=== PATIENT | male | born 1960 | race Caucasian/White ===

== ENCOUNTER 2016-07-19 12:03 | Emergency (ER) | payer SELFPAY ==
[2016-07-19 12:29] VITALS: TEMP 98.6; BMI 27.6
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
[2016-07-19] MEDS ORDERED: DIPHENHYDRAMINE 50 MG/ML VIAL IM ONE (13:36)
[2016-07-19] MEDS ORDERED: METOCLOPRAMIDE 10 MG/2 ML VIAL IM ONE (13:36)
[2016-07-19] MEDS ORDERED: KETOROLAC TROMETHAMINE 60 MG/2 ML SDV IM ONE (13:36)
--- NOTE | 2016-07-19 14:07 | DIRPT ---
CLINICAL DATA: Status post fall with occipital head and neck pain. EXAM: CT HEAD WITHOUT CONTRAST CT CERVICAL SPINE WITHOUT CONTRAST TECHNIQUE: Multidetector CT imaging of the head and cervical spine was performed following the standard protocol without intravenous contrast. Multiplanar CT image reconstructions of the cervical spine were also generated. COMPARISON: CT of the head 01/05/2016 FINDINGS: CT HEAD FINDINGS No mass effect or midline shift. No evidence of acute intracranial hemorrhage, or infarction. No abnormal extra-axial fluid collections. White-white matter differentiation is normal. Basal cisterns are preserved. No depressed skull fractures. Fluid level within the right maxillary and sphenoid sinuses with mild polypoid mucosal thickening, likely due to acute sinusitis. Visualized paranasal sinuses and mastoid air cells are otherwise not opacified. CT CERVICAL SPINE FINDINGS There is straightening of the cervical lordosis likely due to multilevel osteoarthritic changes. Worst affected levels are C4-C5 C5-C6 and C6-C7, with disc space narrowing, endplate sclerotic changes and osteophyte formation. Posterior osteophytes arthropathy is also present, worse at C2-C3, C3-C4 and C3-C4. There is no evidence for acute fracture or dislocation. Prevertebral soft tissues have a normal appearance. Lung apices have a normal appearance. IMPRESSION: No acute intracranial abnormality. Right maxillary and sphenoid sinus acute sinusitis. No evidence of traumatic injury to the cervical spine. Multilevel osteoarthritic changes with straightening of the cervical lordosis. Electronically Signed By: Armando Lezama M.D. On: 07/19/2016 14:05
[2016-07-19 14:27] VITALS: BP 148/76; PULSE 89
== END 2016-07-19 14:24 | disposition home or self-care (01) ==
LOC: EDMC 12:03
DX: J01.00 Acute maxillary sinusitis, unspecified (principal); S16.1XXA Strain of muscle, fascia and tendon at neck level, initial encounter; M47.812 Spondylosis without myelopathy or radiculopathy, cervical region; W01.10XA Fall on same level from slipping, tripping and stumbling with subsequent striking against unspecified object, initial encounter; Y93.9 Activity, unspecified
CPT/HCPCS: 70450; 72125; 96372; 99282; J1200; J1885; J2765

== ENCOUNTER 2016-08-05 10:22 | Emergency (ER) | payer SELFPAY ==
[2016-08-05 10:26] VITALS: TEMP 97.9; BMI 27.3
[2016-08-05] MEDS ORDERED: HYDROmorphone 1 MG INJECTION IM ONE ×2 (10:48→11:55)
[2016-08-05] MEDS ORDERED: DIAZEPAM 5 MG TAB PO ONE (10:48)
[2016-08-05] MEDS ORDERED: KETOROLAC TROMETH 30 MG/ML VIAL IM ONE (10:48)
--- NOTE | 2016-08-05 11:06 | EDPRACDOC ---
ED Hip Problem HPI - General Information Chief Complaint: Hip Pain Stated Complaint: LEFT HIP PAIN Time Seen by Provider: 08/05/16 10:44 Information Source: Patient Mode of Arrival: Car Home Medications: Home Medications ClonazePAM [Klonopin] 0.5 mg PO DAILY PRN 07/19/16 Sumatriptan Succinate [Imitrex] 25 mg PO DAILY PRN 07/19/16 Zolpidem Tartrate [Ambien] 5 - 10 mg PO QHS PRN 07/19/16 Diazepam [Valium] 5 mg PO BID #10 tablet 08/05/16 Ketorolac Tromethamine [Toradol] 10 mg PO Q6H PRN #20 tab 08/05/16 Oxycodone HCl [Roxicodone] 5 mg PO Q6H #15 tablet 08/05/16 Prednisone [Deltasone, Orasone] 1 tabs PO BID #18 tab 08/05/16 Allergies/Adverse Reactions: Allergies Allergy/AdvReac Type Severity Reaction Status Date / Time meperidine [From Demerol] Allergy See Verified 08/05/16 10:26 Comments - History of Present Illness Onset: SUN HPI: PT HAS A HX OF CHRONIC BILATERAL HIP PAIN. HE HAS HAD 3 HIP REPLACEMENTS ON THE RIGHT AND HAS BEEN HAVING MORE PAIN ON THE LEFT AND FEELS LIKE THAT HIP IS GOING TO NEED REPLACEMENT SOON. PT SAID HE SLIPPED AND FELL AND IS NOW HAVING INCREASING PAIN TO HIS LEFT HIP. PT IS ABLE TO AMBULATE, BUT IT REALLY HURTS. Hip Problem Location: Reports: Left, Groin Mechanism: Reports: Blunt Trauma Circumstances: Reports: Fall Relevant History: Reports: Hip operation Able to Bear Weight: Limited Pain Severity: Moderate Associated Signs & Symptoms: Reports: None ED Past Medical History - Patient Medical History Neurological History: Reports: Migraine Psychological History: Reports: Anxiety. Denies: Depression Systemic History: Denies: Cancer Additional Past Medical History: CHRONIC HIP PAIN Surgical History: Reports: Other (RIGHT HIP REPLACEMENTS) - Social Medical History Smoking Status: Never smoker ETOH: None Substance Abuse: None Lives In: Home EDM Review of Systems - Review of Systems ROS Negative Except as Marked: Yes All systems reviewed and were negative except as marked Musculoskeletal: Hip - Physical Exam Constitutional: Alert (Awake), No apparent distress Oriented to: Time, Person, Place Last recorded Vital Signs: Last Vital Signs Temp 97.9 F 08/05/16 10:22 Pulse 100 08/05/16 10:22 Resp 20 08/05/16 10:22 BP 166/97 08/05/16 10:22 Pulse Ox 96 08/05/16 10:22 Oxygen Pulse Oxygen Saturation 96 O2 Device Room Air Oxygen Flow Rate Fraction of Inspired Oxygen ( FIO2) - HEENT Head: Normal ( normocephalic) Eye Exam: Normal (PERRL, EOMI, Sclera white) Oropharynx: Normal (Pharynx:Moist without exudate,Gums-no swelling) ENT EAC: Normal TMJ: Normal Nose: No Symptoms Reported (septum midline) Neck: Normal (FROM, trachea at midline) - Respiratory/Cardiovascular Respiratory: Normal - CTA (BBS clear to auscultation without adventitious sounds ) Cardiovascular: Normal (RRR without murmur, gallop or rub) - GI Auscultation: Normal (NABS) Palpation: Normal (Soft,No rebound or guarding, non distended) Tenderness: Non tender Vance's Sign: Negative - Musculoskeletal Back: Normal (Non-Tender) Extremities: Normal (Normal tone, Pulses 2+ No cyanosis or edema, FROM) - Integumentary Skin: Normal, Warm, Dry Lymphatics: Normal (no adenopathy) - Neurologic Memory Impaired: Normal Motor Function: Normal (Normal tone, Pulses 2+ No cyanosis or edema, FROM) Cranial Nerve: Normal (CN II-X11 intact sensation, strength 5/5) Cerebellar: Normal Mood Description: Normal Perception: Normal ED Hip Problem Physical Exam - Musculoskeletal Hip: Limited ROM, Moderate tenderness Hip Deformity: Normal Pelvis: Tender Thigh: Normal Back: Normal Distal Function/Circulation: Normal - Diagnostic Imaging Hip Image interpreted by: Radiologist Moderate osteoarthritic change left hip joint, progressed slightly since prior study. Total hip prosthesis on the right. No acute fracture or dislocation. Decision Time to Discharge: 12:15 - Departure Yes I personally saw and evaluated the patient. Disposition: Home Condition: Fair Final Diagnosis: ACUTE ON CHRONIC LEFT HIP PAIN Instructions: Hip Injury, RICE Therapy (ED) Education/Counseling Given To: Patient Education/Counseling Given Regarding: Diagnosis, Treatment, Follow Up Referrals: None,No Provider [Primary Care Provider] - One Week Black Alvarez MD [Staff Physician] - One Week Prescriptions: New Diazepam [Valium] 5 mg PO BID #10 tablet Ketorolac Tromethamine [Toradol] 10 mg PO Q6H PRN #20 tab PRN Reason: Pain Oxycodone HCl [Roxicodone] 5 mg PO Q6H #15 tablet Prednisone [Deltasone, Orasone] 1 tabs PO BID #18 tab No Action Zolpidem Tartrate [Ambien] 5 - 10 mg PO QHS PRN PRN Reason: Sleep Or Insomnia Sumatriptan Succinate [Imitrex] 25 mg PO DAILY PRN PRN Reason: Headache ClonazePAM [Klonopin] 0.5 mg PO DAILY PRN PRN Reason: Anxiety
[2016-08-05] MEDS ORDERED: PROMETHAZINE 25 MG/ML VIAL IM ONE (11:55)
--- NOTE | 2016-08-05 12:13 | DIRPT ---
CLINICAL DATA: Chronic pain. Twisting injury with fall 2 days prior EXAM: LEFT HIP (WITH PELVIS) 2-3 VIEWS COMPARISON: August 30, 2014 FINDINGS: Frontal pelvis as well as frontal and lateral left hip images were obtained. There is a total hip prosthesis on the right with prosthetic components appearing well-seated on the right. On the left, there is moderate generalized joint space narrowing, slightly progressed from prior study. There is no acute fracture or dislocation. No erosive change. IMPRESSION: Moderate osteoarthritic change left hip joint, progressed slightly since prior study. Total hip prosthesis on the right. No acute fracture or dislocation. Electronically Signed By: Arun Jordan III, M.D. On: 08/05/2016 12:11
[2016-08-05 12:50] VITALS: BP 160/94; PULSE 82
== END 2016-08-05 12:43 | disposition home or self-care (01) ==
LOC: ED 10:22
DX: M25.552 Pain in left hip (principal); G89.29 Other chronic pain; Z96.641 Presence of right artificial hip joint
CPT/HCPCS: 73502; 96372; 99284; J1170; J1885; J2550; J3490